=== PATIENT | female | born 1940 | race Two or more races ===

== ENCOUNTER 2025-01-30 06:36 | Emergency (ER) | payer OTHER ==
[~2025-01-30] VITALS: Ht 167.6 cm; Wt 52.0 kg
--- NOTE | 2025-01-30 07:21 | ED.PDOC ---
Musculoskeletal HPI Comments A 84-YEAR OLD FEMALE PRESENTS TO THE ED WITH COMPLAINT OF RIGHT HAND PAIN AND RIGHT KNEE PAIN POST FALL. PT STATES SHE TOOK A TRASH CAN OUT, TRIPPED AND FELL EARLY THIS MORNING. SHE LANDED ON THE GROUND ON HER RIGHT HAND AND KNEE. PT C/O RIGHT HAND PAIN AND RIGHT KNEE PAIN. PT DENIES HEAD INJURY, HEADACHE, NECK PAIN, LOW BACK PAIN AND OTHER BODY INJURY. PATIENT DENIES FEVER, CHILLS, SHORTNESS OF BREATH, CHEST PAIN, ABDOMINAL PAIN, NAUSEA, VOMITING, HEADACHE, OR OTHER COMPLAINTS. NO OTHER SYMPTOMS OR MODIFYING FACTORS AT THIS TIME. PATIENT IS ALERT, ORIENTED X 4, AND HAS STEADY GAIT. Chief Complaint: Fall Injury Time Seen by MD: 07:18 Reviewed Notes: Nurses Notes, Medications, Allergies Allergies: Coded Allergies: NO KNOWN ALLERGIES (Unverified , 01/30/25) Home Meds Active Scripts Acetaminophen (Tylenol 8 Hour Arthritis) 650 Mg Tab, 650 MG PO TID, #40 TAB Prov:АННА DONAHUE 01/30/25 Information Source: Patient Mode of Arrival: Ambulatory Location: Right Extremity Location: Hand, Knee Timing: Hours Prehospital treatment: None Severity: Moderate Able to Move Extremity: Yes Bear Weight: Limited Pain: Moderate Hand Dominance: Right Mechanism: Other (FALL ) Circumstances: Fall Onset of Symptoms: During Exercise Symptoms: Swelling, Pain DVT Risk Factors: NONE Last Tetanus: UTD History of: Arthritis Associated signs and symptoms: None Past Medical History PAST MEDICAL HISTORY: HTN Surgical History: Denies all surgeries [facility] [employer] CHIEF History: Denies all [employer] CHIEF Hx Family History Family History: Reviewed,noncontributory to illness Social History Smoker: Non-Smoker Alcohol: Denies ETOH Use Drugs: Denies Drug Use Lives In: Home Constitutional: denies: chills, diaphoresis, fatigue, fever, malaise, sweats, weakness, others EENTM: denies: blurred vision, double vision, ear bleeding, ear discharge, ear drainage, ear pain, ear ringing, eye pain, eye redness, hearing loss, mouth pain, mouth swelling, nasal discharge, nose bleeding, nose congestion, nose p ain, photophobia, tearing, throat pain, throat swelling, voice changes, others Respiratory: denies: cough, hemoptysis, orthopnea, SOB at rest, shortness of breath, SOB with excertion, stridor, wheezing, others Cardiovascular: denies: chest pain, dizzy spells, diaphoresis, Dyspnea on exertion, edema, irregular heart beat, left arm pain, lightheadedness, palpitations, PND, syncope, others Gastrointestinal: denies: abdomen distended, abdominal pain, blood streaked bowels, constipated, diarrhea, dysphagia, difficulty swallowing, hematemesis, melena, nausea, poor appetite, poor fluid intake, rectal bleeding, rectal pain, vomiting, others Genitourinary: denies: abnormal vagina bleeding, burning, dyspareunia, dysuria, flank pain, frequency, hematuria, incontinence, pain, , vagina discharge, urgency, others Neurological: denies: dizziness, fainting, headache, left sided numbness, left sided weakness, numbness, paresthesia, pre-existing deficit, right sided numbness, right sided weakness, seizure, speech problems, tingling, tremors, weakness, others Musculoskeletal: reports: joint pain, joint swelling, muscle pain; denies: back pain, gout, muscle stiffness, neck pain, others Integumetry: denies: bruises, change in color, change in hair/nails, dryness, laceration, lesions, lumps, rash, wounds, others Allergic/Immunocompromised: denies: Difficulty Healing, Frequent Infections, Hives, Itching, others Hematologic/Lymphatic: denies: anemia, blood clots, easy bleeding, easy bruising, swollen glands, others Endocrine: denies: excessive hunger, excessive sweating, excessive thirst, excessive urination, flushing, intolerance to cold, intolerance to heat, unexplained weight gain, unexplained weight loss, others Psychiatric: denies: anxiety, bipolar disorder, depression, hopeless, panic disorder, schizophrenia, sleepless, suicidal, others All Other Systems: Reviewed and Negative Physical Exam General Appearance: No Apparent Distress, Normal HEENT: Normal ENT Inspection, PERRL/EOMI, Pharynx Normal, TMs Normal Neck: Full Range of Motion, Non-Tender, Normal, Normal Inspection Respiratory: Chest Non-Tender, Lungs Clear, No Accessory Muscle Use, No Respiratory Distress, Normal Breath Sounds Cardiovascular: No Edema, No JVD, No Murmur, No Gallop, Normal Peripheral Pulses, Regular Rate/Rhythm Breast Exam: Deferred Gastrointestinal: No Organomegaly, Non Tender, No Pulsatile Mass, Normal Bowel Sounds, Soft Genitalia: Deferred Pelvic: Deferred Rectal: Deferred Extremities: Decreased range of motion, No calf tenderness, Normal capillary refill, No pedal edema, Swelling (TENDERNESS AND MILD SWELLING ON RIGHT DORSAL HAND, NO DEFORMITY. ), Tender (AND CONTUSION AND MILD SWELLING ON RIGHJT ANTYERIOR KNEE, NO BONY TENDERNESS AND DEFORMITY. ), Other (TENDERNESS AND MILD SWELLING ON RIGHT WRIST. NO DEFORMITY. ) Musculoskeletal : Apperance: Normal Neurologic: Alert, display fabricator II-XII nml as Tested, No Motor Deficits, Normal Affect, Normal Mood, No Sensory Deficits Cerebellar Function: Normal Reflexes: Normal Skin: Bruises (RIGHT ANTERIOR KNEE ), Dry, Normal Color, Warm Peripheral Pulses: 2+ carotid (R), 2+ carotid (L), 2+ Radial (R), 2+ Radial (L) Lymphatic: No Adenopathy Was a procedure done? Was a procedure done?: No Differential Diagnosis EXT Differential Diagnosis: Fracture, Sprain, Contusion, Strain, Bursitis X-Ray, Labs, Meds, VS Vital Signs Date Time Temp Pulse Resp B/P (MAP) Pulse Ox O2 Delivery O2 Flow Rate FiO2 01/30/25 07:26 98.7 74 18 156/97 (116) 96 98.7 01/30/25 07:26 74 18 96 Room Air 01/30/25 06:38 98.7 74 18 172/97 96 98.7 Current Medications Medications (Trade) Dose Ordered Sig/Farhan Route Start Time Stop Time Status Last Admin Acetaminophen (Tylenol Tablet) 1,000 mg ONCE ONCE PO 01/30/25 08:30 01/30/25 08:31 DC 01/30/25 08:27 PATIENT: KARYN MORSEACCT: [id number]: [id number] : 1940 LOC: ER ROOM / BED: / AGE / SEX: 84 / F ADM STATUS: REG ER SERVICE 4 ORDERING PHYSICIAN: АННА DONAHUE PROCEDURE(s): RHAN - R HAND 3 VIEW XRAY REASON: FALL ORDER NUMBER(s): [id number], ACCESSION NUMBER(s): [id number] EXAM: XY R HAND 3 VIEW XRAY CLINICAL INDICATION: FALL TECHNIQUE: XY R HAND 3 VIEW XRAY COMPARISON: None FINDINGS/IMPRESSION: There is no evidence of acute fracture or dislocation. 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 Nondisplaced distal radial fracture which is age indeterminate. Correlate with point tenderness. The alignment is anatomical. There is no radiopaque foreign body. ATED BY: BRONSON SAUCEDA MD DICTATED DATE/TIME: 01/30/25848 SIGNED BY: BRONSON SAUCEDA MD SIGNED DATE/TIME: 01/30/25848 CC: X-Ray, Labs, Meds, VS Comment COURSE: EXTERNAL MEDICAL RECORDS REVIEWED: [NONE] INDEPENDENT HISTORIANS: [NONE] SOCIAL DETERMINANTS OF HEALTH: [NONE] LABS ORDERED: NONE REVIEWED AND INTERPRETED RESULTS: NONE IMAGING ORDERED: NONE TREATMENTS ORDERED: TYLENOL 1GM PO, SPLINT OF RIGHT WRIST AND ARM SLING. PROCEDURES PERFORMED: NONE CRITICAL CARE TIME: NONE I HAVE DISCUSSED THE PATIENT WITH THE ATTENDING PHYSICIAN DR. LARA AND HE AGREES WITH THE PATIENT'S PLAN OF CARE AND DISPOSITION. BASED ON HISTORY OF PRESENT ILLNESS, AND PHYSICAL EXAM, PATIENT WILL BE DISCHARGED HOME. DISCUSSED PLAN FOR DISCHARGE HOME WITH RX [TYLENOL 650MG ]. MEDICATION WARNINGS GIVEN. SHARED DECISION MAKING: DISCUSSED WITH PATIENT THAT THEIR WORKUP WAS NORMAL. PATIENT INSTRUCTED TO FOLLOW UP WITH PRIMARY CARE PROVIDER IN 1-2 DAYS FOR RE- EVALUATION OF SYMPTOMS. PATIENT VERBALIZES UNDERSTANDING TO RETURN TO ED FOR NEW OR WORSENING SYMPTOMS OR IF FOLLOW UP WITH PCP CANNOT BE OBTAINED. PATIENT FEELS COMFORTABLE GOING HOME AT THIS TIME. ALL QUESTIONS ADDRESSED AT TIME OF DISCHARGE. Time of 1ST Reevaluation: 09:42 Reevaluation 1ST: Improved Patient Education/Counseling: Diagnosis, Treatment, Need For Follow Up Family Education/Counseling: Diagnosis, Treatment, Need For Follow Up Medical Screening: No EMC Exist At This Time Departure 1 Departure Time of Disposition: 09:42 Impression: Primary Impression: Closed fracture of right distal radius Qualified Codes: S52.521A - Torus fracture of lower end of right radius, initial encounter for closed fracture Additional Impressions: Degenerative joint disease of right hand Qualified Codes: M19.041 - Primary osteoarthritis, right hand Contusion of right knee Qualified Codes: S80.01XA - Contusion of right knee, initial encounter Disposition: HOME / SELF CARE / HOMELESS Condition: Stable Additional Instructions: F/U PCP IN 2 DAYS RECHECK. IF CONDITION BECOME WORSE, RETURN TO ED [facility]. e-Prescriptions Acetaminophen (Tylenol 8 Hour Arthritis) 650 Mg Tab 650 MG PO TID, #40 TAB Prov: АННА DONAHUE 01/30/25 Discharged With: Self, Relative Critical Care Note Critical Care Time?: No Stability Stability form required: АННА Mckeon Jan 30, 2025 07:21
[2025-01-30 07:26] VITALS: BP 156/97; PULSE 74; RESP 18; TEMP 98.7; O2SAT 96
[2025-01-30] MEDS: ACETAMINOPHEN 325 MG TAB PO ONE (08:27)
--- NOTE | 2025-01-30 08:51 | DVH ---
EXAM: XY R HAND 3 VIEW XRAY CLINICAL INDICATION: FALL TECHNIQUE: XY R HAND 3 VIEW XRAY COMPARISON: None FINDINGS/IMPRESSION: There is no evidence of acute fracture or dislocation. 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 Nondisplaced distal radial fracture which is age indeterminate. Correlate with point tenderness. The alignment is anatomical. There is no radiopaque foreign body.
--- NOTE | 2025-01-30 08:53 | DVH ---
EXAM: XY R KNEE 3V XRAY CLINICAL INDICATION: FALL TECHNIQUE: XY R KNEE 3V XRAY COMPARISON: None FINDINGS/IMPRESSION: There is no evidence of acute fracture or dislocation. Moderate right knee tricompartmental joint space narrowing. The alignment is anatomical. There is no radiopaque foreign body.
[2025-01-30] MEDS ORDERED: ACET-1080 PO (09:39)
--- NOTE | 2025-01-30 09:52 | DVH ---
CLINICAL INDICATION: FALL TECHNIQUE: XY R WRIST 3+ VIEW XRAY COMPARISON: XY R HAND 3 VIEW XRAY on DOS: 01/30/25 FINDINGS/IMPRESSION: : Severe degenerative changes of the radiocarpal joint space and 1st CMC. Subtle cortical irregularity at the distal radial metaphysis is suspicious for a nondisplaced fracture.
== END 2025-01-30 09:46 | disposition home or self-care (01) ==
LOC: ER 06:36
DX: S52.501A Unspecified fracture of the lower end of right radius, initial encounter for closed fracture (principal); S80.01XA Contusion of right knee, initial encounter; M19.041 Primary osteoarthritis, right hand; I10 Essential (primary) hypertension; Z79.899 Other long term (current) drug therapy; W01.0XXA Fall on same level from slipping, tripping and stumbling without subsequent striking against object, initial encounter; Y93.89 Activity, other specified; Y92.89 Other specified places as the place of occurrence of the external cause; Y99.8 Other external cause status
CPT/HCPCS: 29125; 73110; 73130; 73562